=== PATIENT | female | born 1965 | race Caucasian/White ===

== ENCOUNTER → 2018-09-23 | Outpatient (CLI) | payer BC, OTHER | LOC: CAT 11:55 | DX: K57.30 Diverticulosis of large intestine without perforation or abscess without bleeding (principal); R11.0 Nausea; Z90.710 Acquired absence of both cervix and uterus ==

== ENCOUNTER → 2019-03-20 | Outpatient (CLI) | payer OTHER | LOC: CAT 08:42 | DX: Z13.6 Encounter for screening for cardiovascular disorders (principal); E78.00 Pure hypercholesterolemia, unspecified; I25.10 Atherosclerotic heart disease of native coronary artery without angina pectoris ==